=== PATIENT | male | born 2000 | race Two or more races ===

== ENCOUNTER 2020-09-13 20:16 | Emergency (ER) | payer BC ==
--- NOTE | 2020-09-14 04:24 | ER ---
DATE SEEN: 09/13/2020 CHIEF COMPLAINT: Injury, left thumb. HISTORY OF PRESENT ILLNESS: Ravi is a 19-year-old male who cut his right thumb at work. The tip of it is bleeding and could not stop it. PAST MEDICAL HISTORY: No active medical problems. PHYSICAL EXAMINATION: VITAL SIGNS: Normal vital signs. EXTREMITIES: Left thumb revealed a pulp fracture which was about 1 cm in size, mostly with some active bleeding. IMPRESSION: Laceration of the thumb. PLAN: Lidocaine was used for digital block and then 6 stitches were placed to achieve hemostasis and patient was discharged home after pressure dressing. Advised to follow up in 1 week for removal of stitches. /[id number] CANDIDO/SUYAPA
== END 2020-09-13 21:18 | disposition home or self-care (01) ==
LOC: FB.ED 20:16
DX: S61.012A Laceration without foreign body of left thumb without damage to nail, initial encounter (principal); W26.8XXA Contact with other sharp object(s), not elsewhere classified, initial encounter; Y99.0 Civilian activity done for income or pay
CPT/HCPCS: 12001; 99282; 99282-25